=== PATIENT | female | born 1960 | race Caucasian/White ===

== ENCOUNTER 2023-03-19 10:17 | Emergency (ER) | payer OTHER, SELFPAY ==
--- NOTE | 2023-03-19 10:24 | ED.DIZZY ---
HPI - Dizziness General Chief Complaint: Dizziness Stated Complaint: Dizziness Source: patient and RN notes reviewed History of Present Illness HPI Narrative: 62 yo F, with hx of DM and RA, presents to urgent care with complaints of dizziness x 1 week. Pt states she believes this is vertigo, stating she has had this before. Pt reports having bilateral ear ringing and states her dizziness has been worse when she lies down and turns to the side. Pt states she has been battling poison destinee as well the last 3 weeks and has been taking 50 mg of Benadryl several times a day for this. Pt states she ran out of Benadryl 2-3 days ago. Pt denies any chest pain, SOB, palpitations, dysuria, abdominal pain, vomiting, fevers, chills, or falls. Pt reports a PEGUERO today. Pt also having the feeling the room is closing in on her with her vision. Pt becoming lightheaded in exam room during exam. Pt states this has happened 1 other time this week. Related Data Home Medications Medication Instructions Recorded Confirmed adalimumab 40 mg/0.8 mL 40 mg subcut [id number] 03/19/23 03/19/23 subcutaneous pen kit (Humira Pen) empagliflozin 10 mg tablet 10 mg PO DAILY 03/19/23 03/19/23 (Jardiance) glimepiride 2 mg tablet 2 mg PO DAILY 03/19/23 03/19/23 hydroxychloroquine 100 mg tablet 100 mg PO BID 03/19/23 03/19/23 metformin 500 mg tablet 500 mg PO BID 03/19/23 03/19/23 semaglutide 1 mg/dose (4 mg/3 mL) 1 mg subcut WEEKLY 03/19/23 03/19/23 subcutaneous pen injector (Ozempic) Allergies Allergy/AdvReac Type Severity Reaction Status Date / Time acetaminophen AdvReac Unknown Dizziness Verified 03/19/23 10:38 propoxyphene AdvReac Unknown Dizziness Verified 03/19/23 10:38 Review of Systems Review of Systems: CONSTITUTIONAL: Denies fever, chills, or sweats. EYES: Denies visual changes, redness, or discharge. ENT: Bilateral tinnitus. CARDIOVASCULAR: Denies chest pain, palpitations, or edema. RESPIRATORY: Denies cough or dyspnea. GASTROINTESTINAL: Denies abdominal pain, vomiting. Reports nausea GENITOURINARY: Denies dysuria or hematuria. SKIN: Denies rash or itching. MUSCULOSKELETAL: Denies back pain, joint pain, or myalgia. NEUROLOGIC: dizziness, PEGUERO, lightheadedness Pertinent positives per HPI. PMFSH Comments At the time of my signature, I reviewed and agree with the nursing past medical, surgical, social, and family history. There is no relevant family history pertinent to the patient complaint. Exam Narrative: GENERAL: This is a well-nourished, well-developed patient, in no apparent distress. HEAD: normocephalic, atraumatic. EYES: Sclera clear/white. Vision is grossly intact. EARS: External ears normal, auditory canals clear and without drainage, TMs normal without perforation. Hearing grossly intact. NOSE: External nose normal with no obvious nasal discharge, nares without redness, no rhinorrhea. THROAT: Mucous membranes moist, posterior pharynx clear. NECK: Neck supple, non-tender without lymphadenopathy, masses or thyromegaly. CARDIOVASCULAR: Regular rate and rhythm without murmurs, gallops, or rubs. RESPIRATORY: Clear to auscultation. Breath sounds equal bilaterally. No wheezes, rales, or rhonchi. GASTROINTESTINAL: Abdomen soft, non-tender, nondistended. Bowel sounds are active. No hepato-splenomegaly, or palpable masses. No guarding. SKIN: warm, intact with no suspicious lesions or rash, good texture and turgor. NEURO: awake, alert, and oriented to person, place and time. There were no obvious focal neurologic abnormalities. Course Course Level of Care: Express Care Visit Vital Signs Vital signs: Vital Signs Temperature 97.5 F L 03/19/23 10:27 Pulse Rate 102 H 03/19/23 10:27 Respiratory Rate 14 03/19/23 10:27 Blood Pressure 127/77 03/19/23 10:27 Pulse Oximetry 98 03/19/23 10:27 Oxygen Delivery Room Air 03/19/23 10:27 Temperature 97.5 F L 03/19/23 10:27 Pulse Rate 107 H 03/19/23 11:09 Respirat
[2023-03-19 10:27] VITALS: BP 127/77; PULSE 102; RESP 14; TEMP 36.4; O2SAT 98
--- NOTE | 2023-03-19 10:47 | ECG_ITS ---
Measurements Intervals [place] Rate: 95 P: 60 OK: 164 QRS: -3 QRSD: 97 T: 65 QT: 373 QTc: 470 Interpretive Statements SINUS RHYTHM LOW QRS VOLTAGE IN PRECORDIAL LEADS [QRS DEFLECTION < 1.0 mV IN CHEST LEADS] BORDERLINE ECG NO PREVIOUS ECG AVAILABLE FOR COMPARISON Electronically Signed On 03-19-2023 17:15:38 CDT by Everton Torrez M.D.
[2023-03-19 10:51] LABS: Glucose Point of Care 186 mg/dl (65-105)
[2023-03-19 11:03] VITALS: BP 149/83; PULSE 98
[2023-03-19 11:06] VITALS: BP 137/76; PULSE 99
[2023-03-19 11:09] VITALS: BP 119/81; PULSE 107
== END 2023-03-19 11:43 | disposition short-term general hospital (02) ==
PROVIDERS: Emergency Provider Nurse Practitioner Family
DX: R42 Dizziness and giddiness (principal); E86.0 Dehydration; R55 Syncope and collapse; E11.9 Type 2 diabetes mellitus without complications; M06.9 Rheumatoid arthritis, unspecified; Z79.84 Long term (current) use of oral hypoglycemic drugs
CPT/HCPCS: 82948; 93005; 99213; G0463